=== PATIENT | male | born 1985 | race Caucasian/White ===

== ENCOUNTER 2017-03-06 21:10 | Inpatient (IN) ==
[2017-03-06] MEDS ORDERED: SODIUM CHLORIDE 0.9% 2,000 ML IV STA (23:03)
[2017-03-06] MEDS ORDERED: VANCOMYCIN INJ 1,000 MG in SODIUM CHLORIDE 0.9% 250 ML IV STA (23:03)
[2017-03-06] MEDS ORDERED: CEFEPIME 2,000 MG in SODIUM CHLORIDE 0.9% 100 ML IV STA (23:04)
[2017-03-06] MEDS ORDERED: VANCOMYCIN 1,000 MG VIAL ONE (23:13)
[2017-03-06 23:50] LABS: Basophils # 0.1 10*3/uL (0.0-0.2); Basophils % 0.3 % (0.0-0.8); Eosinophils % 0.1 % (0.00-10.9); Hematocrit 41.7 VOL% (42.0-52.0); Hemoglobin 14.9 GM/DL (14.0-18.0); Immature Granulocytes % 0.6 %; Immature Granulocytes Absolute 0.13 #; Lymphocytes # 1.9 10*3/uL (1.4-4.0); Lymphocytes % 8.5 % (21.2-54.2); Mean Corpuscular HGB Conc 35.7 GM/DL (32-36); Mean Corpuscular Hemoglobin 31 PG (27-34); Mean Corpuscular Volume 85.5 FL (87-102); Mean Platelet Volume 10.1 FL (9.6-12.0); Monocytes # 1.7 10*3/uL (0.11-0.8); Monocytes % 7.5 % (1.7-12.7); Neutrophils # 18.6 10*3/uL (1.4-7.4); Platelet Count 302 T/CUMM (130-400); Red Blood Count 4.88 MC/CUMM (3.8-5.5); White Blood Count 22.4 T/CUMM (4-12)
[2017-03-07 00:12] LABS: Albumin 3.8 G/DL (3.4-5.0); Bilirubin,Total 1.5 MG/DL (0.2-1.0); Calcium 9.4 MG/DL (8.5-10.1); Osmolality,Calculated 265.4 MOS/KG (273-304); Potassium 4.4 MMOL/L (3.5-5.1); Total Protein 7.2 G/DL (6.4-8.3)
--- NOTE | 2017-03-07 00:24 | Emergency Department Note ---
Arrival - Arrival Chief Complaint: Non-Specific Stated Complaint: spider bite cant feel arm ED Nursing Triage Note: Patient to triage with c/o possibly being bit by some kind on spider 4 days ago on his right elbow. Since being biten, patient is now feeling shaky, weak, feverish, and has been having palpitations. EKG obtained in triage. Mode of Arrival: Ambulatory Time Seen by Provider: 03/06/17 22:21 - History of Present Illness HPI Narrative: This is a 31-year-old white male who believes he may have been bitten by a spider 4 days ago after which he noticed redness and swelling of his right olecranon bursa area which has steadily become worse red hot and swollen and which became associated with shaking chills and fever with a temperature of 102 today. The patient has tachycardia normal blood pressure and an elevated white blood cell count all of which may be consistent with cellulitis and early sepsis. Allergies/Adverse Reactions: Allergies Allergy/AdvReac Type Severity Reaction Status Date / Time No Known Allergies Allergy Verified 03/06/17 21:34 Home Medications: Home Medications Medication Instructions Recorded Confirmed Type No Known Home Medications [No 03/06/17 03/06/17 History Known Home Medications] Review of System - Review of System Constitutional: Present: chills, fever Eyes: Absent: redness, vision change Head/Ears/Nose/Throat: Absent: epistaxis, nasal drainage Respiratory: Absent: respiratory distress, wheezing Cardiovascular: Absent: dyspnea on exertion, orthopnea, edema Gastrointestinal: Absent: nausea, vomiting, diarrhea Genitourinary male: Absent: urgency, dysuria Musculoskeletal: Present: arm pain, joint swelling. Absent: leg pain Skin: Absent: change in color, change in hair/nails, pruritus Neurological: Absent: numbness, paresthesias, confusion Psychiatric: Absent: anxiety, depression Endocrine: Absent: polydipsia, polyuria Hematological/Lymphatic: Absent: easy bruising, lymphadenopathy Allergic/Immunologic: Absent: urticaria, itchy eyes Medical,Surgical,& Family Hx - Medical History Musculoskeletal: History of: Musculoskeletal Problems (sx to right hand) - Social History Smoking Status: Current every day smoker Frequency of Alcohol Use: None Type of Drug Use: None Exam Vital Signs: Vital Signs Temperature 101.6 F H 03/06/17 21:24 Pulse Rate 120 H 03/06/17 21:24 Respiratory Rate 18 03/06/17 23:03 Blood Pressure 114/80 03/06/17 21:24 O2 Sat by Pulse Oximetry 100 03/06/17 21:24 - General General appearance: alert - Eye Eye exam: Present: PERRL, EOMI - ENT ENT exam: Present: normal exam - Neck Neck exam: Present: normal inspection, full ROM - Chest Chest inspection: Present: normal inspection, symmetric chest wall rise - Respiratory Respiratory exam: Present: normal lung sounds bilaterally - Cardiovascular Cardiovascular exam: Present: regular rate, normal rhythm - Abdominal Exam Abdominal exam: Present: soft, distention - Extremities Exam Extremities exam: Present: other (Redness swelling and edema of the right olecranon bursa and right elbow area) - Back Exam Back exam: Present: normal inspection, full ROM - Neurological Exam Neurological exam: Present: alert, oriented X3, CN II-XII intact - Psychiatric Psychiatric exam: Present: normal affect, normal mood - Skin Skin exam: Present: warm, dry Course Course Narrative: Because the patient has fever, tachycardia , obvious cellulitis involving the right elbow, elevated white blood cell count and chills it seems reasonable that he should be admitted to the hospital for intravenous antibiotic and fluid resuscitation. The case was discussed with the hospitalist who agreed to admit the patient. Results - Labs CBC & BMP: 03/06/17 23:28 03/06/17 23:28 Disposition Clinical Impression: Cellulitis of right elbow, Sepsis Disposition: Still a Patient Additional Instructions: The patient appears to have early sepsis and cellulitis of the right elbow therefore seems reasonable patient can be admitted to the hospital for intravenous antibiotics and further evaluation. The case was discussed with the hospitalist who agreed to admit the patient.
[2017-03-07] MEDS ORDERED: ACETAMINOPHEN 500 MG TABLET ONE (00:32)
[2017-03-07 01:02] LABS: Apearance,Urine CLEAR (Clear); Bilirubin,Urine Negative (Negative); Blood, Urine Negative (Negative); Glucose,Urine (UA) Negative (Negative); Ketones,Urine 20 mg/dL (Negative); Nitrite,Urine Negative (Negative); Protein,Urine Negative; Squamous Epithelial Cell,Urine Occasional /HPF (0-10); Urine Color Yellow (Yellow); Urine Specific Gravity 1.026 (1.001-1.035); WBC,Urine 1 /HPF (0-6)
[2017-03-07] MEDS ORDERED: ONDANSETRON 4 MG/2 ML VIAL IV PRN ×2 (02:40→14:49)
--- NOTE | 2017-03-07 02:45 | Hospitalist History & Physical ---
Assessment and Plan (1) Cellulitis of right elbow Status: Acute Current Visit: Yes (2) Sepsis Status: Acute Assessment and plan: Our plan for this patient will be admitting him to our service. He will be placed on IV antibiotics. I want to consult Ortho for their evaluation of his elbow. Repeat labs in the morning Current Visit: Yes History of Present Illness Chief complaint: Arm pain and swelling History of present illness: Mr. Whitney is a 31 year old male with no significant past medical history presents to our ER tonight. Patient reports approximately 4 days ago that he had a bump on his arm. At that time he tried to get the pus out of it and it did have some come out. Soon thereafter it started hurting even more and his arm at the elbow is erythematous. He started running a fever decided to come up to the hospital for further evaluation I was consulted to admit him for cellulitis through the emergency room. Home Medications Medication Instructions Recorded Confirmed Type No Known Home Medications [No 03/06/17 03/06/17 History Known Home Medications] Allergies Allergy/AdvReac Type Severity Reaction Status Date / Time No Known Allergies Allergy Verified 03/06/17 21:34 Medical,Surgical,& Family Hx - Medical History Musculoskeletal: History of: Musculoskeletal Problems (sx to right hand) - Surgical History Orthopedic Surgeries: Surgical HX of;: Orthopedic Surgery - Family History Family History: Reports;: Family Hypertension - Social History Smoking Status: Current every day smoker Frequency of Alcohol Use: None Type of Drug Use: None 12 point system: reviewed and no additional remarkable complaints except as stated Exam - Constitutional Vitals: Period Temp Pulse Resp BP Sys/Dubon Pulse Ox Last 24 Hr 101.6 F-101.6 F 120-120 18-20 114-114/80-80 100 General appearance: normal weight - Head Head exam: Present: normal inspection - Eye Eye exam: Present: EOMI Pupils: Present: CORAL - ENT ENT exam: Present: normal exam - Neck Neck exam: Present: normal inspection - Respiratory Respiratory exam: Present: clear to auscultation bilaterally - Cardiovascular Cardiovascular exam: Present: regular rate and rhythm - GI/Abdominal GI/Abdominal exam: Present: normal bowel sounds - Extremities Exam Extremities exam: Present: other (Patient has erythema and edema on his right elbow. It has limited the range of motion of the elbow.) Results - Labs CBC & BMP: 03/06/17 23:28 03/06/17 23:28
[2017-03-07 04:16] LABS: Lymphocytes 7 % (20-55); Platelet Estimate Normal; Segmented Neutrophils 85 % (50-85); Total Cells Counted 100
[2017-03-07] MEDS ORDERED: INFLUENZA VIRUS VACCINE 0.5 ML SYRINGE IM ONE (04:21)
[2017-03-07 06:47] LABS: Basophils # 0.1 10*3/uL (0.0-0.2); Basophils % 0.4 % (0.0-0.8); Eosinophils # 0.2 10*3/uL (0.0-0.87); Eosinophils % 1.3 % (0.00-10.9); Hematocrit 37.5 VOL% (42.0-52.0); Immature Granulocytes % 1.1 %; Immature Granulocytes Absolute 0.21 #; Lymphocytes % 15.8 % (21.2-54.2); Mean Corpuscular HGB Conc 34.7 GM/DL (32-36); Mean Corpuscular Hemoglobin 30 PG (27-34); Mean Corpuscular Volume 86.6 FL (87-102); Mean Platelet Volume 10.4 FL (9.6-12.0); Monocytes # 1.9 10*3/uL (0.11-0.8); Monocytes % 10.2 % (1.7-12.7); Neutrophils # 13.3 10*3/uL (1.4-7.4); Neutrophils % 71.2 % (38.7-73.9); Platelet Count 285 T/CUMM (130-400); Red Blood Count 4.33 MC/CUMM (3.8-5.5); Red Cell Distribution Width 12.1 % (9.3-17.3); White Blood Count 18.7 T/CUMM (4-12)
[2017-03-07 07:10] LABS: Albumin 2.8 G/DL (3.4-5.0); Bilirubin,Total 1.1 MG/DL (0.2-1.0); Calcium 8.5 MG/DL (8.5-10.1); Osmolality,Calculated 278.5 MOS/KG (273-304); Potassium 3.9 MMOL/L (3.5-5.1); Total Protein 5.8 G/DL (6.4-8.3)
--- NOTE | 2017-03-07 07:39 | XRay Report ---
XR elbow 2V RT Clinical Information: Edema, Fasciitis Comparison: None available Findings: There is no acute fracture or evidence of dislocation. There is no joint effusion. No suspicious osseous lesions are identified. Soft tissue swelling is noted about the elbow, most prominent posteriorly. Visualized joint space appears relatively preserved. Impression: No acute fracture. Soft tissue swelling. PROCEDURE INTERPRETED AT [facility] DEPARTMENT OF RADIOLOGY Final Report Signed by: Ryan Ann
[2017-03-07] MEDS ORDERED: CEFTAROLINE 600 MG in SODIUM CHLORIDE 0.9% 50 ML IV SCH (09:00)
--- NOTE | 2017-03-07 10:59 | Hospitalist Progress Note ---
Assessment and Plan (1) Cellulitis of right elbow Status: Acute Assessment and plan: Patient appears stable at the present time he is being treated with intravenous ceftaroline is scheduled to undergo surgery for possible incision and drainage of an abscess. Current Visit: Yes (2) Sepsis Status: Acute Assessment and plan: See above. Current Visit: Yes Qualifiers: Sepsis type: sepsis due to unspecified organism Qualified Code(s): A41.9 - Sepsis, unspecified organism Hospitalist: Subjective Interval history: Patient was admitted to the hospital last night with cellulitis of the right arm. He is presently being treated with intravenous ceftaroline. He was seen in consultation by Dr. Moseley of orthopedics. Patient is scheduled to undergo surgery today. Exam - Constitutional Vitals: Period Temp Pulse Resp BP Sys/Dubon Pulse Ox Last 24 Hr 97.0 F-101.6 F 82-120 18-20 109-119/58-80 96-100 General appearance: no acute distress - Head Head exam: Present: normal inspection - Neck Neck exam: Present: normal inspection - Respiratory Respiratory exam: Present: clear to auscultation bilaterally - Cardiovascular Cardiovascular exam: Present: regular rate and rhythm - GI/Abdominal GI/Abdominal exam: Present: normal bowel sounds, soft - Extremities Exam Extremities exam: Present: other (Diffuse cellulitis involving the right arm from the elbow nearly to the shoulder.) - Skin Skin exam: Present: normal color, warm, intact Results - Labs CBC & BMP: 03/07/17 06:10 03/07/17 06:10
[2017-03-07] MEDS ORDERED: BUPIVACAINE 0.5% /EPI 10 ML VIAL ONE (11:47)
[2017-03-07] MEDS: PANTOPRAZOLE 40 MG TABLET PO SCH (12:25)
--- NOTE | 2017-03-07 13:05 | Orthopedic Consult Note ---
History of Present Illness Chief complaint: Right elbow pain, redness and swelling History of present illness: Mr. Whitney is a 31 year old male who has had progressive posterior elbow redness , pain and swelling over the last 4-5 days. The patient states that he initially developed a dark spot that he squeezed and obtained what look like a dark here. He is also has prodded the area with pins. He has not had a specific injury. He has not personally witnessed a spider bite. The patient is right-hand dominant is employed as a manager [employer]. He has been complaining also of fever. He was admitted last night and placed on antibiotics. He is complaining of some numbness to his ulnar 3 digits. Home Medications Medication Instructions Recorded Confirmed Type No Known Home Medications [No 03/06/17 03/06/17 History Known Home Medications] Allergies Allergy/AdvReac Type Severity Reaction Status Date / Time No Known Allergies Allergy Verified 03/06/17 21:34 12 point system: reviewed and no additional remarkable complaints except as stated Medical,Surgical,& Family Hx - Medical History Respiratory: History of: Asthma ( A CHILD) Genitourinary: History of: Problems (HESITANCY X 6 MOS) No history of: Prostate Problems (NOT SURE) Gastrointestinal: Comment Only: GI Problems (GASTRIC ULCER) Musculoskeletal: History of: Back/Neck Problems (BILATERAL SHOULDER PAINS ( THINKS ROTATTO CUFF)), Musculoskeletal Problems (sx to right hand) Other: History of: Skin Problems (PAIN,REDNESS, SWELLING RIGHT ARM PRESENTLY) - Surgical History Thoracic Surgeries: Patient denies;: Kidney (Renal Surgery), Lithotripsy, Nephrectomy HEENT Surgeries: Patient denies: Eye Surgery, Thyroid Surgery, Tonsilectomy & Adenoidectomy Abdominal Surgeries: Surgical HX of: EGD (HE THINKS) Patient denies: Abdominal Surgery, Appendectomy, Cholecystectomy, Colonoscopy , Gastric Bypass Surgery, Hernia Repair Reproductive Surgeries: Patient denies;: Cystoscopy, Genitourinary Surgery, Prostate Surgery Orthopedic Surgeries: Surgical HX of;: Orthopedic Surgery - Family History Family History: Reports;: Family Cancer (PAT AND MAT GF (LUNG CA),PAT AND MAT GM (BREAST,LIVER,SKIN)), Family Diabetes (FIRST COUSIN), Family Heart Disease ( DAD ([place])), Family Hypertension, Family Psychiatric Problems, Additional Family History (BRO (KIDNEY FAILURE),HYDRCEPHALIC) Denies;: Family Anesthesia Reaction, Family Hematology, Family Stroke - Social History Smoking Status: Current every day smoker Frequency of Alcohol Use: None Type of Drug Use: None Exam - Constitutional Vitals: Period Temp Pulse Resp BP Sys/Dubon Pulse Ox Last 24 Hr 97.0 F-101.6 F 82-120 18-20 109-125/58-80 96-100 Alert and oriented. Exam right elbow shows erythema and induration surrounding an olecranon effusion. He has lymphadenopathy palpable about his distal medial elbow. There is no lymphadenopathy. He is nontender over his ulnar nerve. There is no gross subluxation. He has limited terminal extension and flexion secondary to pain. He has painless forearm rotation. Sensation is diminished to his ulnar 3 digits to light touch. He has full hand active range of motion. Abduction and abduction strength is 5 out of 5. Capillary refill is less than 2 seconds. He has palpable radial pulse. Radiographs elbow are reviewed and show posterior elbow swelling. The patient has leukocytosis last night to 22.4 in this morning to 18.7. Impression: Right olecranon bursitis, septic Plan: I have advised incision and drainage. Risks and benefits were discussed all questions were answered. Cultures will be obtained. Results - Labs CBC & BMP: 03/07/17 06:10 03/07/17 06:10 Assessment and Plan (1) Septic olecranon bursitis of right elbow Status: Acute Current Visit: Yes
--- NOTE | 2017-03-07 13:11 | Operative Note ---
Procedure: DIAGNOSIS: Right septic olecranon bursitis PROCEDURE: Incision and drainage right septic olecranon bursitis SURGEON: Lorelei ANESTHESIA: LMA general PROCEDURE and FINDINGS: After adequate anesthesia was induced, the patient's right upper extremity was prepped and draped in usual sterile fashion. A posterior longitudinal incision was made. A thick layer of purulent fluid was encountered. Aerobic and anaerobic cultures were obtained and sent to pathology. Necrotic bursal tissue was excised sharply and removed with a rongeur. The wound was copiously irrigated and loosely closed with 3-0 nylon vertical mattress sutures. 1/4 inch Jennifer drain was placed. A soft dressing was placed. Surgeon / Physician: Eliecer Moseley Jr. Results - Labs CBC & BMP: 03/07/17 06:10 03/07/17 06:10 Discharge Plan - Discharge Medications No Action No Known Home Medications [No Known Home Medications] - Follow Up or Referral - Forms/Instructions
[2017-03-07] MEDS ORDERED: LACTATED RINGERS 1,000 ML IV SCH (13:30)
[2017-03-07] MEDS ORDERED: MORPHINE 2 MG/1 ML SYRINGE IV PRN (14:07)
--- NOTE | 2017-03-07 14:15 | Anesthesia Post-Op ---
Anesthesia Post OP - Post Ansesthetic Evaluation Patient seen in post op: Yes Resp: within normal limits CV: within normal limits Mental: within normal limits Temp: within normal limits [id number]: within normal limits Nausea and Vomiting: within normal limits Pain: within normal limits
[2017-03-07] MEDS ORDERED: PROPOFOL 200 MG/20 ML VIAL IV ONE (14:34)
[2017-03-07] MEDS ORDERED: SEVOFLURANE 1 UNIT/15 MINUTE INH ONE (14:34)
[2017-03-07] MEDS ORDERED: ONDANSETRON 4 MG/2 ML VIAL ONE ×2 (14:34→14:45)
[2017-03-07] MEDS ORDERED: fentaNYL 100 MCG/2 ML VIAL ONE (14:34)
[2017-03-07] MEDS ORDERED: MIDAZOLAM 2 MG/2 ML VIAL ONE (14:34)
[2017-03-07] MEDS ORDERED: HYDROmorphone 2 MG/1 ML VIAL ONE (14:44)
[2017-03-07] MEDS: HYDROmorphone 2 MG/1 ML VIAL IV PRN ×4 (14:45→15:00)
[2017-03-07] MEDS ORDERED: VANCOMYCIN INJ 1,250 MG in SODIUM CHLORIDE 0.9% 250 ML IV SCH (15:00)
--- NOTE | 2017-03-07 15:49 | Order Completion Report ---
See report scanned to EMR
[2017-03-07] MEDS: KETOROLAC 30 MG/1 ML VIAL IV SCH (18:01)
[2017-03-07] MEDS: VANCOMYCIN INJ 1,250 MG in SODIUM CHLORIDE 0.9% 250 ML IV SCH (18:08)
[2017-03-08] MEDS: KETOROLAC 30 MG/1 ML VIAL IV SCH ×3 (02:22→14:34)
[2017-03-08] MEDS: VANCOMYCIN INJ 1,250 MG in SODIUM CHLORIDE 0.9% 250 ML IV SCH ×2 (02:43→14:50)
--- NOTE | 2017-03-08 10:48 | Hospitalist Progress Note ---
Assessment and Plan (1) Cellulitis of right elbow Status: Acute Assessment and plan: Patient is stable day 1 status post incision and drainage of abscess of right elbow. He continues on intravenous vancomycin. Cultures are pending. Current Visit: Yes (2) Sepsis Status: Acute Assessment and plan: See above. He appears much improved today. His vital signs demonstrate blood pressure 116/70, HR 92/min, and temperature 97.6F. Current Visit: Yes Qualifiers: Sepsis type: sepsis due to unspecified organism Qualified Code(s): A41.9 - Sepsis, unspecified organism Hospitalist: Subjective Interval history: Patient is day 1 status post incision and drainage of abscess of right elbow. He continues on intravenous vancomycin. He is doing well with no specific complaints. Exam - Constitutional Vitals: Period Temp Pulse Resp BP Sys/Dubon Pulse Ox Last 24 Hr 97.2 F-98.4 F 78-101 16-20 98-125/57-79 20-100 General appearance: no acute distress - Head Head exam: Present: normal inspection - Neck Neck exam: Present: normal inspection - Respiratory Respiratory exam: Present: clear to auscultation bilaterally - Cardiovascular Cardiovascular exam: Present: regular rate and rhythm - GI/Abdominal GI/Abdominal exam: Present: normal bowel sounds, soft - Extremities Exam Extremities exam: Present: other (Bandaged right upper extremity.) - Skin Skin exam: Present: normal color, warm, intact Results - Labs CBC & BMP: 03/07/17 06:10 03/07/17 06:10
--- NOTE | 2017-03-08 13:18 | Orthopedic Progress Note ---
Orthopedics - Subjective Interval history: Patient without without complaint splint right upper externa Exam - Constitutional Vitals: Period Temp Pulse Resp BP Sys/Dubon Pulse Ox Last 24 Hr 97.2 F-98.4 F 78-101 16-20 98-132/57-79 96-100 Results - Labs CBC & BMP: 03/07/17 06:10 03/07/17 06:10 - Impressions doing well Pull drain in AM
[2017-03-08] MEDS: PANTOPRAZOLE 40 MG TABLET PO SCH (14:34)
[2017-03-08] MEDS ORDERED: KETOROLAC 30 MG/1 ML VIAL IV SCH (16:30)
[2017-03-09] MEDS: VANCOMYCIN INJ 1,250 MG in SODIUM CHLORIDE 0.9% 250 ML IV SCH ×2 (03:12→15:39)
[2017-03-09 05:03] LABS: Basophils # 0.1 10*3/uL (0.0-0.2); Basophils % 0.6 % (0.0-0.8); Eosinophils # 0.2 10*3/uL (0.0-0.87); Eosinophils % 2.6 % (0.00-10.9); Hematocrit 38.2 VOL% (42.0-52.0); Immature Granulocytes % 0.7 %; Immature Granulocytes Absolute 0.06 #; Lymphocytes # 2.6 10*3/uL (1.4-4.0); Lymphocytes % 28.7 % (21.2-54.2); Mean Corpuscular Hemoglobin 30 PG (27-34); Mean Corpuscular Volume 87.6 FL (87-102); Mean Platelet Volume 10.7 FL (9.6-12.0); Monocytes % 11.1 % (1.7-12.7); Neutrophils % 56.3 % (38.7-73.9); Platelet Count 351 T/CUMM (130-400); Red Blood Count 4.36 MC/CUMM (3.8-5.5); Red Cell Distribution Width 12.1 % (9.3-17.3); White Blood Count 8.9 T/CUMM (4-12)
[2017-03-09 05:32] LABS: Calcium 8.3 MG/DL (8.5-10.1); Potassium 4.4 MMOL/L (3.5-5.1)
[2017-03-09] MEDS ORDERED: KETOROLAC 30 MG/1 ML VIAL IV SCH (09:00)
[2017-03-09] MEDS: PANTOPRAZOLE 40 MG TABLET PO SCH (09:23)
[2017-03-09] MEDS: KETOROLAC 30 MG/1 ML VIAL IV SCH (09:24)
--- NOTE | 2017-03-09 10:03 | Hospitalist Progress Note ---
Assessment and Plan (1) Cellulitis of right elbow Status: Acute Assessment and plan: Patient is stable day 2 status post incision and drainage of abscess of right elbow. He continues on intravenous vancomycin. Cultures showed gram-positive cocci. Current Visit: Yes (2) Sepsis Status: Acute Assessment and plan: See above. He appears much improved today. His vital signs demonstrate blood pressure 113/71, HR 83/min, and temperature 97.8F. Current Visit: Yes Qualifiers: Sepsis type: sepsis due to unspecified organism Qualified Code(s): A41.9 - Sepsis, unspecified organism Hospitalist: Subjective Interval history: Patient is doing well status post incision and drainage of abscess of right elbow. He continues on intravenous vancomycin. Blood cultures were negative. Abscess culture is demonstrated gram-positive cocci. Sensitivities are pending. Exam - Constitutional Vitals: Period Temp Pulse Resp BP Sys/Dubon Pulse Ox Last 24 Hr 97.7 F-98.6 F 83-94 18-22 113-132/61-95 93-100 General appearance: no acute distress - Head Head exam: Present: normal inspection - Neck Neck exam: Present: normal inspection - Respiratory Respiratory exam: Present: clear to auscultation bilaterally - Cardiovascular Cardiovascular exam: Present: regular rate and rhythm - GI/Abdominal GI/Abdominal exam: Present: normal bowel sounds, soft - Extremities Exam Extremities exam: Present: other (Bandaged right elbow.) - Skin Skin exam: Present: normal color, warm, intact Results - Labs CBC & BMP: 03/09/17 03:23 03/09/17 03:23
--- NOTE | 2017-03-09 11:26 | Orthopedic Progress Note ---
Orthopedics - Subjective Interval history: Mr. Whitney is postop irrigation debridement right olecranon bursa per Dr. Richardson He has been fairly noncompliant with unwrapping rewrapping his dressing Dressings changed today and jordan drain is pulled the is swelling appears to be down significantly the erythema is down significant new sterile dressing is applied Discussed with the patient at length to leave the dressing alone to leave it on with a still very lightly today told him not to tighten Cultures are growing out a gram-positive cocci sensitivity is pending Plan will be to continue antibiotics to cultures are back Exam - Constitutional Vitals: Period Temp Pulse Resp BP Sys/Dubon Pulse Ox Last 24 Hr 97.7 F-98.6 F 83-94 18-22 113-132/61-95 93-100 Results - Labs CBC & BMP: 03/09/17 03:23 03/09/17 03:23
[2017-03-10] MEDS: VANCOMYCIN INJ 1,250 MG in SODIUM CHLORIDE 0.9% 250 ML IV SCH (02:57)
[2017-03-10] MEDS: PANTOPRAZOLE 40 MG TABLET PO SCH (09:18)
--- NOTE | 2017-03-10 12:01 | Event Note ---
Mr. Whitney was not in the room when I rounded. I will attempt to see him later today.
[2017-03-10 12:40] VITALS: BP 126/76
--- NOTE | 2017-03-10 12:52 | Discharge Summary ---
<Edyta Villafurete - Last Filed: 03/10/17 12:43> Hospital Course - Hospital Course Hospital Course: This is a 31-year-old male that presented to the ED at [facility] on the night March 07, 2017 for the evaluation of right elbow pain . The patient reports a medical history significant for current nicotine abuse and a surgical history significant for right hand surgery. The patient reported the onset of symptoms 4 days prior to presentation. The patient reported that he observed a bump on his right elbow. The patient noted that the area became reddened and started to have a malodorous drainage. As the days progressed, the patient started to run fever which prompted him to present to the ED for further evaluation. The patient was assessed at the time of ED presentation. The patient was noted to be febrile with a temperature noted at 102.0. Labs were obtained which were significant for white blood cell count 22.4, sodium 133, calculated osmolality 265.4, lactic acid 1.0. Urinalysis was essentially remarkable for urine urobilinogen 4.0. X-ray right elbow was essentially unremarkable for any acute fracture however, soft tissue swelling was noted. The patient was subsequently admitted to the hospitalist service for continuation of care. The sepsis bundle was initiated at the time of admission. Due to the severity of the patient's presenting symptoms, an orthopedic consultation was requested. Empiric antibiotic coverage, aggressive rehydration, deep vein thrombosis prophylaxis, and pain management was initiated. The patient was evaluated by orthopedics and recommendations were given. On March 07, 2017, the patient underwent incision and drainage right septic olecranon bursitis under the direction of Dr. Eliecer Moseley. Wound cultures were obtained at that time which were essentially remarkable for the presence of methicillin resistant Staphylococcus aureus. The patient was then placed on contact isolation precautions. The patient's condition gradually improved. The patient is condition is stable. The patient has not experienced any significant overnight events. The patient is requesting to leave AGAINST MEDICAL ADVICE. The patient has been advised of the risk associated with premature discharge and has verbalized understanding of the risks. I agree with the discharge summary as dictated by Edyta Villafuerte [employer]. Patient understands that there are risks associated with leaving AGAINST MEDICAL ADVICE. Diagnosis - Discharge Diagnosis (1) Cellulitis of right elbow Status: Resolved (2) Sepsis Status: Resolved (3) Septic olecranon bursitis of right elbow Status: Resolved Specialty Discharge - Follow Up or Referrals Follow up with: Eliecer Moseley Jr., MD [Physician] - 03/17/17 1:55 pm Discharge Plan - Discharge Data Disposition: Left Against Medical Advice Condition at Discharge: Stable Discharge Diet: advance to your usual diet Activity: resume usual activities as tolerated Hygiene: no restrictions Weight Bearing at Discharge: full weight bearing Driving: no restrictions Contact your physician if you experience:: fever over 101, Redness or swelling, Nausea/Vomiting, Shortness of breath - Discharge Medications New Clindamycin Cap [Cleocin Cap] 150 mg PO Q6HR #56 capsule Ibuprofen 800 mg PO Q8HR #42 tablet Sulfameth/Trimeth 400-80 Tab [Bactrim Tab] 1 tablet PO BID #28 tablet - Follow Up or Referral Follow Up: Eliecer Moseley Jr., MD [Physician] - 03/17/17 1:55 pm - Forms/Instructions Exam - Constitutional Vitals: Period Temp Pulse Resp BP Sys/Dubon Pulse Ox Last 24 Hr 97.1 F-98.8 F 70-81 18-22 112-128/70-78 97-99 General appearance: normal weight, no acute distress - Head Head exam: Present: normal inspection, normocephalic, atraumatic - Eye Eye exam: Present: EOMI. Absent: conjunctival injection Pupils: Present: CORAL, normal accommodation - ENT ENT exam: Present: normal exam, normal external ear exam, normal oropharynx - Neck Neck exam: Present: normal inspection. Absent: lymphadenopathy, meningismus, tenderness, thyromegaly - Respiratory Respiratory exam: Present: clear to auscultation bilaterally. Absent: rales, rhonchi, stridor, wheezes - Cardiovascular Cardiovascular exam: Present: regular rate and rhythm. Absent: carotid bruit, diastolic murmur, gallop, JVD, rubs, systolic murmur - GI/Abdominal GI/Abdominal exam: Present: normal bowel sounds, soft - Extremities Exam Extremities exam: Present: normal inspection, normal capillary refill, edema, other (Compression dressing noted to right elbow; status post I&D) - Back Exam Back exam: Present: normal inspection - Neurological Exam Neurological exam: Present: alert, oriented X3, altered - Psychiatric Psychiatric exam: Present: anxious - Skin Skin exam: Present: normal color, warm, dry Discharge Results Procedures and tests throughout hospitalization: Pending Orders 03/06/17 23:50 Blood Culture Stat Labs on day of discharge: Preliminary micro results at discharge 03/06/17 23:50 Blood Culture - Preliminary Blood No growth at 3 days 03/06/17 23:28 Blood Culture - Preliminary Blood No growth at 3 days DS: Provider Date of admission: 03/07/17 02:14 Primary care physician: . No PCP Attending physician on admission: Jc Adams Consults: 03/07/17 02:40 Consult to Physician [CONS] Routine Comment: Consulting Provider: Eliecer Moseley Jr. Consult to Specialist Group: Orthopedic When should Consulting Provider be notified: In am Person Notified: JOSE Date Notified: 03/07/17 Time Notified: 08:15 03/07/17 13:13 Consult to Pharmacy [CONS] Routine Reason for Pharmacy Consult: Dose/Manage Vancomycin Discharging clinician: Edyta Villafuerte CNP <Jc Adams - Last Filed: 03/10/17 13:12> Diagnosis - Discharge Diagnosis (1) Cellulitis of right elbow Status: Resolved (2) Sepsis Status: Resolved
== END 2017-03-10 13:35 | disposition left against medical advice (07) | DRG 854 ==
LOC: N.ED 21:10 → N.2E 03-07 02:14